=== PATIENT | female | born 1980 | race American Indian/Alaskan Native ===

== ENCOUNTER 2017-12-02 16:46 | Emergency (ER) | payer SELFPAY ==
[2017-12-02] MEDS ORDERED: NORCO 5/325 PO ONE (23:18)
--- NOTE | 2017-12-02 23:19 | Emergency Department Report ---
ED Back Pain/Injury HPI - General Chief Complaint: Back Pain/Injury Stated Complaint: BACK PAIN Time Seen by Provider: 12/02/17 23:07 Source: patient, family Mode of arrival: Ambulatory Limitations: No Limitations - History of Present Illness Initial Comments: Patient reported that she has pain to her left back that radiated into her left hip and left leg. She is also complaining that she has a knot on the right lower back that is getting bigger and she thinks that she was bitten by something. Patient denies any history of diabetes and said her only medical problem is asthma. She denies any fever or chills. Denies any loss of bowel or bladder function. Denies any previous history of back injury or back pain. Denies any abdominal pain. She says she has urinary urgency but denies any frequency or urinary burning. Denies any vaginal bleeding or discharge. Pain is 8 out of 10 and achy and worse with movement better with rest. She that she has been taking [id number] medication for pain but it's not helping. She said the knot has been on her right lower back for about 6 months. Patient does not have a primary care physician. MD Complaint: back pain Onset/Timin -: days(s) Similar Symptoms Previously: No Place: home Radiation: left leg (and left hip), other (patient also reports pain to her right back from [place] that she thinks she got bit by something) Severity: severe Severity scale (0 -10): 10 Quality: aching Consistency: intermittent Improves With: immobilization Worsens With: movement, walking Context: unknown Associated Symptoms: rash. denies: confusion, weakness, chest pain, numbness, difficulty walking, cough, difficulty urinating, diaphoresis, incontinence, fever/chills, headaches, abdominal pain, loss of appetite, malaise, nausea/ vomiting, seizure, shortness of breath, syncope Treatments Prior to Arrival: acetaminophen - Related Data Previous Rx's Medication Instructions Recorded Last Taken Type Sulfamethoxazole/Trimethoprim 1 each PO BID 10 Days #20 tablet 12/03/17 Unknown Rx [Bactrim DS TAB] traMADol [Ultram] 50 mg PO Q6HR PRN #12 tablet 12/03/17 Unknown Rx Allergies Allergy/AdvReac Type Severity Reaction Status Date / Time No Known Allergies Allergy Unverified 12/02/17 23:17 ED Review of Systems ROS: Stated complaint: BACK PAIN Other details as noted in HPI Comment: All other systems reviewed and negative Constitutional: no symptoms reported Eyes: denies: eye pain, eye discharge ENT: denies: ear pain, throat pain, congestion Respiratory: no symptoms reported Cardiovascular: denies: chest pain, palpitations, dyspnea on exertion, edema, syncope, paroxysmal nocturnal dyspnea Gastrointestinal: denies: abdominal pain, nausea, vomiting, diarrhea, constipation, hematemesis, melena, hematochezia Genitourinary: urgency. denies: dysuria, frequency, hematuria, discharge, abnormal menses Musculoskeletal: back pain, arthralgia. denies: joint swelling, myalgia Skin: denies: rash, lesions, change in color, change in hair/nails, pruritus, other Neurological: denies: headache, numbness, paresthesias, confusion, abnormal gait , vertigo ED Past Medical Hx - Past Medical History Previous Medical History?: Yes Hx Asthma: Yes - Surgical History Past Surgical History?: No - Family History Family history: no significant - Social History Smoking Status: Current Every Day Smoker Substance Use Type: None - Medications Home Medications: Home Medications Medication Instructions Recorded Confirmed Last Taken Type Sulfamethoxazole/Trimethoprim 1 each PO BID 10 Days #20 tablet 12/03/17 Unknown Rx [Bactrim DS TAB] traMADol [Ultram] 50 mg PO Q6HR PRN #12 tablet 12/03/17 Unknown Rx ED Physical Exam - General Limitations: No Limitations General appearance: alert, in no apparent distress - Head Head exam: Present: atraumatic, normocephalic, normal inspection - Eye Eye exam: Present: normal appearance, PERRL, EOMI. Absent: nystagmus Pupils: Present: normal accommodation - ENT ENT exam: Present: normal exam, normal orophraynx, mucous membranes moist - Neck Neck exam: Present: normal inspection, full ROM. Absent: tenderness, meningismus, lymphadenopathy, thyromegaly - Respiratory Respiratory exam: Present: normal lung sounds bilaterally. Absent: respiratory distress, chest wall tenderness, accessory muscle use - Cardiovascular Cardiovascular Exam: Present: regular rate, normal rhythm, normal heart sounds. Absent: systolic murmur, diastolic murmur - GI/Abdominal GI/Abdominal exam: Present: soft, normal bowel sounds. Absent: distended, tenderness, guarding, rebound, rigid, organomegaly, mass, bruit, pulsatile mass , hernia - Extremities Exam Extremities exam: Present: normal inspection, full ROM, normal capillary refill , other (no clubbing, cyanosis or edema. +2 pulses to all extremities and no neurovascular compromise). Absent: tenderness, pedal edema, joint swelling, calf tenderness - Back Exam Back exam: Present: normal inspection, full ROM, tenderness, rash noted (pt has cellulitic area 3 cm x 3 cm to right lumbar area with small point of entry to Center. No induration and no fluctuance. No drainage.), other (patient ablated without any difficulties.). Absent: CVA tenderness (R), CVA tenderness (L), muscle spasm, paraspinal tenderness, vertebral tenderness - Expanded Back Exam Expanded Back exam: Present: other (no erythema or tenderness to vertebral spine area). Absent: saddle anesthesia Back exam: Negative Straight Leg Raising: Left, Right - Neurological Exam Neurological exam: Present: alert, oriented X3, normal gait, reflexes normal. Absent: motor sensory deficit - Expanded Neurological Exam Expanded Neurological exam: Absent: innattentive, memory loss-remote event, memory loss- recent event, ataxia, receptive aphasia, expressive aphasia, total aphasia, tremor, protecting the airway Speech: Present: fluid speech Cranial nerves: EOM's Intact: Normal, Gag Reflex: Normal, Tongue Deviation: Normal, Nystagmus: Normal, Facial Sensation: Normal Cerebellar function: Romberg: Normal Upper motor neuron: Pronator Drift: Normal, Sensory Extinction: Normal Sensory exam: Upper Extremity Light Touch: Normal, Upper Extremity Temperature: Normal, UE 2 Point Discrimination: Normal, Lower Extremity Light Touch: Normal, Lower Extremity Temperature: Normal, LE 2 Point Discrimination: Normal Motor strength exam: RUE: 5, LUE: 5, RLE: 5, LLE: 5 DTR: bicep (R): 2+, bicep (L): 2+, tricep (R): 2+, tricep (L): 2+, knee (R): 2+ , knee (L): 2+, ankle (R): 2+, ankle (L): 2+ Best Eye Response (Will): (4) open spontaneously Best Motor Response (Will): (6) obeys commands Best Verbal Response (Will): (5) oriented [place] Total: 15 - Psychiatric Psychiatric exam: Present: normal affect, normal mood - Skin Skin exam: Present: warm, dry, intact, normal color. Absent: rash ED Course Vital Signs 12/02/17 18:53 Temperature 98.2 F Pulse Rate 89 Respiratory 16 Rate Blood Pressure 181/58 O2 Sat by Pulse 98 Oximetry Vital Signs 12/02/17 12/03/17 18:53 01:39 Temperature 98.2 F 98.4 F Pulse Rate 89 92 H Respiratory 16 20 Rate Blood Pressure 181/58 Blood Pressure 148/62 [Left] O2 Sat by Pulse 98 98 Oximetry - Reevaluation(s) Reevaluation #1: 12/03/17 01:39 Patient given hydrocodone 5/325 2 tablets emergency room for lower back pain or radiculopathy. ED Medical Decision Making - Lab Data Lab Results 12/02/17 Range/Units 23:30 Urine Color Yellow (Yellow) Urine Turbidity Clear (Clear) Urine pH 5.0 (5.0-7.0) Ur Specific [place] 1.030 (1.003-1.030) Urine Protein <15 mg/dl (Negative) mg/dL Urine Glucose (UA) Neg (Negative) mg/dL Urine Ketones Neg (Negative) mg/dL Urine Blood Lg (Negative) Urine Nitrite Neg (Negative) Urine Bilirubin Neg (Negative) Urine Urobilinogen 4.0 (<2.0) mg/dL Ur Leukocyte Esterase Neg (Negative) Urine WBC (Auto) 2.0 (0.0-6.0) /HPF Urine RBC (Auto) 1.0 (0.0-6.0) /HPF U Epithel Cells (Auto) 9.0 (0-13.0) /HPF Urine Mucus 1+ /HPF - Radiology Data Radiology results: report reviewed X-ray of lumbar spine reveal no acute fracture or subluxation. Normal bone mineralization. - Medical Decision Making ED course:Pt here report left lower back pain or radiation to left hip and left leg that started yesterday evening and right lower back pain from possible insect bite that's been ongoing for 6 months. Urinalysis revealed negative and negative bacterial infection. X-ray of lumbar spine reveal no acute findings. Findings were discussed with patient and she voiced understanding. Patient with right lumbar area that appears to be an insect bite due to pinpoint opening and center. She also has left lower back pain with radiculopathy with normal lumbar spine x-ray. I discussed the patient that she will need to follow up with orthopedic doctor and also primary care. She does not have a primary care physician so I refer her [facility] and inform her to call to schedule an appointment for follow-up visit cellulitis. Patient was given [place] 5/325 2 tablets in the emergency room which relieved her pain. Her blood pressure is better prior to discharge. She will receive one dose of Bactrim DS prior to discharge. Her tetanus vaccine is up-to-date per patient. Discharged home with her family with prescription for Bactrim DS and Ultram and to follow-up with primary care and orthopedic as referred. Critical care attestation.: If time is entered above; I have spent that time in minutes in the direct care of this critically ill patient, excluding procedure time. ED Disposition Clinical Impression: Cellulitis of lower back, Blood pressure elevated without history of HTN Pain in lower back Qualifiers: Chronicity: acute Back pain laterality: left Sciatica presence: with sciatica Sciatica laterality: sciatica of left side Qualified Code(s): M54.42 - Lumbago with sciatica, left side Disposition: DC-01 TO HOME OR SELFCARE Is pt being admited?: No Does the pt Need Aspirin: No Condition: Stable Instructions: Cellulitis (ED), Acute Low Back Pain (ED), Lumbar Radiculopathy ( ED), Heart Healthy Diet (ED), Hypertension (ED) Additional Instructions: Please keep a log a few blood pressure and take to primary care visit with you. Please schedule appointment with primary care at [facility] later this morning Status post treatment of cellulitis of emergency room Take antibiotic as prescribed for infection on your lower back Take naproxen for back pain Please keep affected area clean and dry Please do not drive or operate heavy machinery while taking Ultram as this medication causes drowsiness Prescriptions: Sulfamethoxazole/Trimethoprim [Bactrim DS TAB] 1 each PO BID 10 Days #20 tablet traMADol [Ultram] 50 mg PO Q6HR PRN #12 tablet PRN Reason: Pain Referrals: [facility] [Outside] - 12/04/17 VIOLETA SANCHEZ MD [Staff Physician] - 12/04/17 Forms: Accompanied Note, Work/School Release Form(ED)
--- NOTE | 2017-12-02 23:52 | XRay Report ---
FINAL REPORT PROCEDURE: XR SPINE LUMBOSACRAL 2-3V TECHNIQUE: Lumbar spine radiographs, including AP, lateral, and lumbosacral spot views. CPT 41815 HISTORY: rt lumbar radiculopathy. new COMPARISON: No prior studies are available for comparison. FINDINGS: Alignment: Normal. Vertebral body heights/Disk spaces: Normal. Fracture(s): None. Facets: Normal. Bone mineralization: Normal. IMPRESSION: Normal Examination.
[2017-12-03 00:04] LABS: Bilirubin,Urine NEG (Negative); Blood,Urine LG (Negative); Color,Urine Yellow (Yellow); Mucus,Urine 1+ /HPF; Protein,Urine <15 mg/dL mg/dL (Negative)
[2017-12-03 01:40] VITALS: BP 148/62
[2017-12-03] MEDS ORDERED: BACTRIM DS PO ONE (01:43)
== END 2017-12-03 02:00 | disposition home or self-care (01) ==
LOC: ED 16:46
DX: L03.312 Cellulitis of back [any part except buttock and flank] (principal); M54.42 Lumbago with sciatica, left side; J45.909 Unspecified asthma, uncomplicated; F17.200 Nicotine dependence, unspecified, uncomplicated
CPT/HCPCS: 72100; 81001